=== PATIENT | male | born 1995 | race American Indian/Alaskan Native ===

== ENCOUNTER 2021-09-22 05:20 | Emergency (ER) | payer MEDICAID, OTHER ==
[2021-09-22] MEDS ORDERED: propofoL 200 MG/20 ML VIAL IV ONE (06:56)
--- NOTE | 2021-09-22 06:59 | Emergency Department Report ---
ED ENT HPI - General Chief complaint: Pain General Stated complaint: JAW LOCKED Time Seen by Provider: 09/22/21 06:56 Source: patient Mode of arrival: Ambulatory Limitations: No Limitations - History of Present Illness Initial comments: Patient is a 26-year-old male presented ED with complaint of jaw dislocation after attempting to brush his teeth this morning. Reports history of jaw dislocation in the past while at the dentist. - Related Data Previous Rx's Medication Instructions Recorded Last Taken Type Ibuprofen [Motrin] 400 mg PO TID PRN #30 tablet 12/26/12 Unknown Rx Ciprofloxacin HCl [Cipro] 500 mg PO Q12H #14 tab 07/03/14 Unknown Rx Ibuprofen [Motrin] 600 mg PO Q8H PRN #30 tablet 07/03/14 Unknown Rx Allergies Allergy/AdvReac Type Severity Reaction Status Date / Time No Known Allergies Allergy Unverified 12/26/12 17:02 ED Dental HPI - General Chief complaint: Pain General Stated complaint: JAW LOCKED Time Seen by Provider: 09/22/21 06:56 Source: patient Mode of arrival: Ambulatory Limitations: No Limitations - Related Data Previous Rx's Medication Instructions Recorded Last Taken Type Ibuprofen [Motrin] 400 mg PO TID PRN #30 tablet 12/26/12 Unknown Rx Ciprofloxacin HCl [Cipro] 500 mg PO Q12H #14 tab 07/03/14 Unknown Rx Ibuprofen [Motrin] 600 mg PO Q8H PRN #30 tablet 07/03/14 Unknown Rx Allergies Allergy/AdvReac Type Severity Reaction Status Date / Time No Known Allergies Allergy Unverified 12/26/12 17:02 ED Review of Systems ROS: Stated complaint: JAW LOCKED Other details as noted in HPI Comment: All other systems reviewed and negative Constitutional: denies: chills, fever ENT: denies: ear pain, throat pain Respiratory: denies: cough, shortness of breath, wheezing Cardiovascular: denies: chest pain, palpitations Gastrointestinal: denies: abdominal pain, nausea, diarrhea Musculoskeletal: denies: back pain, joint swelling, arthralgia Skin: denies: rash, lesions Neurological: denies: headache, weakness, paresthesias Psychiatric: denies: anxiety, depression ED Past Medical Hx - Past Medical History Previous Medical History?: No Hx Hypertension: No Hx CVA: No Hx Heart Attack/AMI: No Hx Congestive Heart Failure: No Hx Diabetes: No Hx Deep Vein Thrombosis: No Hx Pulmonary Embolism: No Hx GERD: No Hx Liver Disease: No Hx Renal Disease: No Hx Sickle Cell Disease: No Hx Arthritis: No Hx Headaches / Migraines: No Hx Seizures: No Hx Kidney Stones: No Hx Psychiatric Treatment: No Hx Asthma: No Hx COPD: No Hx Tuberculosis: No Hx Dementia: No Hx HIV: No - Surgical History Past Surgical History?: No Hx Coronary Stent: No Hx Open Heart Surgery: No Hx Pacemaker: No Hx Internal Defibrillator: No Hx Cholecystectomy: No Hx Appendectomy: No Hx Breast Surgery: No - Social History Smoking Status: Never Smoker Substance Use Type: None - Medications Home Medications: Home Medications Medication Instructions Recorded Confirmed Last Taken Type Ibuprofen [Motrin] 400 mg PO TID PRN #30 tablet 12/26/12 Unknown Rx Ciprofloxacin HCl [Cipro] 500 mg PO Q12H #14 tab 07/03/14 Unknown Rx Ibuprofen [Motrin] 600 mg PO Q8H PRN #30 tablet 07/03/14 Unknown Rx ED Physical Exam - General Limitations: No Limitations General appearance: alert, in no apparent distress - Head Head exam: Present: atraumatic, normocephalic - ENT ENT exam: Present: other (Mouth held in open position. Unable to close) - Respiratory Respiratory exam: Present: normal lung sounds bilaterally. Absent: respiratory distress - Cardiovascular Cardiovascular Exam: Present: regular rate, normal rhythm. Absent: systolic murmur, diastolic murmur, rubs, gallop - Neurological Exam Neurological exam: Present: alert, oriented X3 - Psychiatric Psychiatric exam: Present: normal affect, normal mood - Skin Skin exam: Present: warm, dry, intact, normal color ED Course Vital Signs 09/22/21 09/22/21 09/22/21 05:23 08:16 08:36 Temperature 97.6 F Temperature [ 98.0 F Intra-Procedure ] Temperature [ Post-Procedure] Temperature [ 97.9 F Pre-Procedure] Pulse Rate 62 Pulse Rate [ Intra-Procedure ] Pulse Rate [ Post-Procedure] Pulse Rate [Pre 48 L -Procedure] Respiratory 18 Rate Respiratory Rate [Intra- Procedure] Respiratory Rate [Post- Procedure] Respiratory 17 Rate [Pre- Procedure] Blood Pressure 131/73 Blood Pressure [Intra- Procedure] Blood Pressure [Post-Procedure ] Blood Pressure 123/86 [Pre-Procedure] O2 Sat by Pulse 95 Oximetry O2 Sat by Pulse Oximetry [ Intra-Procedure ] O2 Sat by Pulse Oximetry [Post -Procedure] O2 Sat by Pulse 100 Oximetry [Pre- Procedure] 09/22/21 09/22/21 09/22/21 08:40 08:45 08:50 Temperature Temperature [ 98.0 F Intra-Procedure ] Temperature [ 98.0 F 98.0 F Post-Procedure] Temperature [ Pre-Procedure] Pulse Rate Pulse Rate [ 75 Intra-Procedure ] Pulse Rate [ 70 78 Post-Procedure] Pulse Rate [Pre -Procedure] Respiratory Rate Respiratory 21 Rate [Intra- Procedure] Respiratory 19 21 Rate [Post- Procedure] Respiratory Rate [Pre- Procedure] Blood Pressure Blood Pressure 130/94 [Intra- Procedure] Blood Pressure 116/63 113/69 [Post-Procedure ] Blood Pressure [Pre-Procedure] O2 Sat by Pulse Oximetry O2 Sat by Pulse 100 100 Oximetry [ Intra-Procedure ] O2 Sat by Pulse 100 100 Oximetry [Post -Procedure] O2 Sat by Pulse Oximetry [Pre- Procedure] 09/22/21 09/22/21 09/22/21 09:05 09:20 09:35 Temperature Temperature [ Intra-Procedure ] Temperature [ 97.9 F 97.9 F 97.9 F Post-Procedure] Temperature [ Pre-Procedure] Pulse Rate Pulse Rate [ Intra-Procedure ] Pulse Rate [ 67 67 55 L Post-Procedure] Pulse Rate [Pre -Procedure] Respiratory Rate Respiratory Rate [Intra- Procedure] Respiratory 21 16 17 Rate [Post- Procedure] Respiratory Rate [Pre- Procedure] Blood Pressure Blood Pressure [Intra- Procedure] Blood Pressure 116/78 117/61 110/66 [Post-Procedure ] Blood Pressure [Pre-Procedure] O2 Sat by Pulse Oximetry O2 Sat by Pulse Oximetry [ Intra-Procedure ] O2 Sat by Pulse 100 100 100 Oximetry [Post -Procedure] O2 Sat by Pulse Oximetry [Pre- Procedure] - Jaw Reduction Consent Obtained: written consent Time Out Performed: Yes Pre-Treatment Medications Used: none Technique used: other (Spontaneously reduced after sedation) Reduction successful: Yes Patient Tolerated Procedure: well, no complications Complications: none - Moderate Sedation Indications: other (Jaw dislocation) ASA Class: I Mallampati Airway Score: 1 Preparation: school year nanny applied, pulse oximeter, supplemental O2 applied, reversal agents at bedside, suction/airway equipment at bedside, IV secured IV Propofol Dose (mgs): 80 Complications: none Patient Tolerated Procedure: well ED Medical Decision Making - Medical Decision Making Patient spontaneously reduced his jaw after sedation kicked in. He was monitored until back to baseline. Critical care attestation.: If time is entered above; I have spent that time in minutes in the direct care of this critically ill patient, excluding procedure time. ED Disposition Clinical Impression: Jaw dislocation Disposition: 01 HOME / SELF CARE / HOMELESS Is pt being admited?: No Condition: Stable Instructions: Jaw Dislocation, [id number] Time of Disposition: 09:51
[2021-09-22] MEDS ORDERED: HYDROcodone/ACETAMINOPHEN 5-325 MG TAB PO ONE (09:28)
[2021-09-22 10:47] VITALS: BP 118/60
== END 2021-09-22 10:00 | disposition home or self-care (01) ==
LOC: ED 05:20
DX: S03.00XA Dislocation of jaw, unspecified side, initial encounter (principal); X58.XXXA Exposure to other specified factors, initial encounter; Y93.89 Activity, other specified; Y92.89 Other specified places as the place of occurrence of the external cause; Y99.8 Other external cause status
CPT/HCPCS: 21480; 99283; J2704